=== PATIENT | female | born 1980 | race Caucasian/White ===

== ENCOUNTER 2018-09-16 15:34 | Emergency (ER) | payer OTHER ==
[~2018-09-16] VITALS: Ht 157.5 cm; Wt 67.3 kg
[2018-09-16 15:35] VITALS: BP 136/86
--- NOTE | 2018-09-16 20:02 | REP ---
RIGHT LOWER LEG AP AND LATERAL: There is no evidence of an acute fracture, dislocation or intrinsic bone disease. IMPRESSION: No fracture or dislocation. Electronically Signed by Campos Madera MD 09/17/2018 06:29 P
--- NOTE | 2018-09-16 20:31 | REP ---
RIGHT FOOT, FOUR VIEWS: There is no evidence of an acute fracture, dislocation or intrinsic bone disease. IMPRESSION: No fracture or dislocation. Electronically Signed by Campos Madera MD 09/17/2018 06:39 P
== END 2018-09-16 18:38 | disposition home or self-care (01) ==
LOC: M ED 15:34
DX: M79.671 Pain in right foot (principal); Z87.828 Personal history of other (healed) physical injury and trauma; Z88.8 Allergy status to other drugs, medicaments and biological substances

== ENCOUNTER → 2019-03-12 | Outpatient (REF) | payer OTHER | LOC: M SFHCLERA 14:12 | PROVIDERS: ATTEND Nurse Practitioner Family | DX: J02.9 Acute pharyngitis, unspecified (principal) ==

== ENCOUNTER → 2019-05-11 | Outpatient (REF) | payer OTHER ==
[2019-05-16 08:26] LABS: HPV HYBRID CAPTURE II Negative (Negative)
== END ==
LOC: M SFHCWAGY 14:32
PROVIDERS: ATTEND Nurse Practitioner Women's Health
DX: Z12.4 Encounter for screening for malignant neoplasm of cervix (principal)
CPT/HCPCS: 87624; G0123; G0463

== ENCOUNTER 2019-08-13 18:47 | Emergency (ER) | payer OTHER ==
[~2019-08-13] VITALS: Ht 157.5 cm; Wt 72.0 kg
[2019-08-13] MEDS ORDERED: MULTCAP PO (18:56)
[2019-08-13] MEDS ORDERED: NS 1,000 ML IV ONE (20:00)
[2019-08-13 20:19] LABS: BASO % 0.2 % (0.0-1.0); EOS # 0.1 10^3/uL (0.0-0.5); EOS % 1.1 % (0.0-3.0); HEMATOCRIT 44.6 % (36.0-47.0); HEMOGLOBIN 14.7 g/dl (12.0-15.5); LYMPH # 0.9 10^3/uL (1.5-5.0); LYMPH % 8.1 % (24.0-44.0); MEAN CORPUSCULAR HEMOGLOBIN 30.5 pg (27.0-33.0); MEAN CORPUSCULAR VOLUME 92.5 fl (80.0-96.0); MONO # 0.4 10^3/uL (0.0-0.8); MONO % 3.9 % (0.0-5.0); NEUTROPHILS # 9.4 10^3/uL (1.5-8.5); NEUTROPHILS % 86.1 % (36.0-66.0); PLATELET COUNT, AUTOMATED 257 10^3/uL (150-450); RED BLOOD COUNT 4.82 10^6/uL (4.00-5.40); WHITE BLOOD COUNT 10.9 10^3/uL (4.0-10.0)
[2019-08-13] MEDS ORDERED: ONDANSETRON 4MG/2ML VIAL (J2405) IV ONE (20:30)
[2019-08-13 20:39] LABS: ALBUMIN 4.1 GM/DL (3.2-5.2); ALT/SGPT 17 U/L (12-78); BILIRUBIN,DIRECT 0.1 MG/DL (0.0-0.2); BILIRUBIN,TOTAL 0.4 MG/DL (0.2-1.0); BLOOD UREA NITROGEN 11 MG/DL (7-18); CALCIUM LEVEL 8.5 MG/DL (8.5-10.1); CARBON DIOXIDE LEVEL 28 MEQ/L (21-32); CHLORIDE LEVEL 107 MEQ/L (98-107); GLOMERULAR FILTRATION RATE > 60.0 (>60); GLUCOSE, FASTING 100 MG/DL (70-100); LIPASE 78 U/L (73-393); POTASSIUM SERUM 3.7 MEQ/L (3.5-5.1); SODIUM LEVEL 139 MEQ/L (136-145); TOTAL PROTEIN 7.9 GM/DL (6.4-8.2)
[2019-08-13 20:53] LABS: INFLUENZA A AMPLIFICATION NEGATIVE (NEGATIVE); INFLUENZA B AMPLIFICATION NEGATIVE (NEGATIVE)
[2019-08-13] MEDS ORDERED: ISOVUE-370 76% 100ML VIAL (Q9967) As Ordered ONE (21:14)
[2019-08-13] MEDS ORDERED: KETOROLAC 30 MG/ML VIAL (J1885) IV ONE (21:15)
--- NOTE | 2019-08-13 22:29 | REPVR ---
PROCEDURE INFORMATION: Exam: CT Abdomen And Pelvis With Contrast Exam date and time: 08/13/2019 9:23 PM Age: 38 years old Clinical indication: Abdominal pain; Generalized; Additional info: R/O obstruction TECHNIQUE: Imaging protocol: Computed tomography of the abdomen and pelvis with intravenous contrast. Radiation optimization: All CT scans at this facility use at least one of these dose optimization techniques: automated exposure control; mA and/or kV adjustment per patient size (includes targeted exams where dose is matched to clinical indication); or iterative reconstruction. Contrast material: ISOVUE 370; Contrast volume: 100 ml; Contrast route: IV; COMPARISON: CR Abdomen,Flat Upright,PA CHEST 08/13/2019 8:41 PM FINDINGS: Liver: The liver is normal. Gallbladder and bile ducts: Status post cholecystectomy. Bile ducts are not dilated. Pancreas: The pancreas is normal. Spleen: The spleen is normal. There is a 13 mm accessory splenule. Adrenals: The adrenal glands are normal. Kidneys and ureters: There is a 2 mm nonobstructive lower pole left renal calculus. No obstructive calculus. There is a 6 mm hypodensity in the lower pole of the left kidney. There is a similar sized hypodensity in the upper pole. These are probably cysts but too small for definitive characterization. No hydronephrosis. Stomach and bowel: Loops of jejunum appear mildly thick-walled. No bowel distention to indicate bowel obstruction. Appendix: The appendix is normal. Intraperitoneal space: There is a metallic density in the right mid abdomen. This is a tubal ligation clip which has migrated. The 2nd clip is seen along the inferior edge of the left fallopian tube. No free fluid or fluid collection. No free air. Vasculature: Unremarkable. No abdominal aortic aneurysm. Lymph nodes: Unremarkable. No enlarged lymph nodes. Bladder: The bladder is normal with no evidence of calculi. Reproductive: See Intraperitoneal Space Finding. Bones/joints: Unremarkable. No acute fracture. Soft tissues: There are bilateral breast implants. IMPRESSION: 1. No evidence of bowel obstruction. 2. Mildly thick-walled loops of jejunum may indicate enteritis. 3. A fallopian tube clip has migrated into the right mid abdomen. The clip on the left is at the inferior edge of the fallopian tube and may have also migrated. Electronically signed by: Hank Sahu On 08/13/2019 22:29:09 PM
[2019-08-13] MEDS ORDERED: PROMETHAZINE INJ 25 MG/ML VIAL (J2550) IV ONE (23:15)
[2019-08-13] MEDS ORDERED: MORPHINE 4 MG/ML 1ML VIAL/SYRINGE (J2270) IV ONE (23:45)
[2019-08-14] MEDS ORDERED: ONDANSETRON 4MG/2ML VIAL (J2405) IV ONE (00:15)
[2019-08-14] MEDS ORDERED: DICYCLOMINE 10 MG CAP PO ONE (00:45)
[2019-08-14] MEDS ORDERED: PROCHLORPERAZINE 5 MG TAB (S0183) PO STA ×2 (01:11→02:39)
[2019-08-14] MEDS ORDERED: NS 1,000 ML IV ONE (01:15)
[2019-08-14] MEDS ORDERED: NORCO, ANEXSIA 5/325MG TABLET (HYDROcodone/ACETAMINOPHEN) PO ONE (02:00)
[2019-08-14] MEDS ORDERED: DICY10CA13 PO (02:38)
[2019-08-14] MEDS ORDERED: PROC10TA4 PO (02:38)
[2019-08-14] MEDS ORDERED: NORCO 5/325MG TABLET (BULK FOR ED) PO ONE (02:45)
[2019-08-14 03:06] VITALS: BP 96/55
--- NOTE | 2019-08-14 08:26 | REP ---
Clinical: Epigastric and abdominal pain. Technique: Upright view of the chest with supine and upright views of the abdomen and pelvis. Findings: Frontal upright view of the chest demonstrates no acute cardiopulmonary process or free air below the diaphragm to suspect pneumoperitoneum. Supine and upright views of the abdomen and pelvis demonstrate nonspecific bowel gas pattern without obstruction or perforation. No organomegaly. No abnormal calcifications. Skeletal structures normal for age. Evidence of prior cholecystectomy. Impression: Nonspecific bowel gas pattern. Electronically Signed by Austen Castro MD 08/14/2019 08:17 A
== END 2019-08-14 03:25 | disposition home or self-care (01) ==
LOC: M ED 18:47
DX: K52.9 Noninfective gastroenteritis and colitis, unspecified (principal); K21.9 Gastro-esophageal reflux disease without esophagitis; Z88.8 Allergy status to other drugs, medicaments and biological substances; Z79.899 Other long term (current) drug therapy
CPT/HCPCS: 74021; 74177; 80048; 80076; 81001; 81002; 81025; 83690; 84702; 85025; 87502; 96361; 96374; 96375; 96376; 99284; G0463; J1885; J2270; J2405; Q9967

== ENCOUNTER 2019-08-16 11:42 | Emergency (ER) | payer OTHER ==
[~2019-08-16] VITALS: Ht 157.5 cm; Wt 72.2 kg
[~2019-08-16 11:42] MED LIST: DICY10CA13 PO; MULTCAP PO; PROC10TA4 PO
[2019-08-16 12:23] LABS: BASO % 0.3 % (0.0-1.0); EOS # 0.1 10^3/uL (0.0-0.5); EOS % 1.5 % (0.0-3.0); HEMATOCRIT 42.2 % (36.0-47.0); HEMOGLOBIN 13.6 g/dl (12.0-15.5); LYMPH # 1.3 10^3/uL (1.5-5.0); LYMPH % 17.3 % (24.0-44.0); MEAN CORPUSCULAR HGB CONC 32.2 g/dl (32.0-36.5); MONO # 0.4 10^3/uL (0.0-0.8); MONO % 5.6 % (0.0-5.0); NEUTROPHILS # 5.4 10^3/uL (1.5-8.5); NEUTROPHILS % 74.9 % (36.0-66.0); PLATELET COUNT, AUTOMATED 238 10^3/uL (150-450); RED BLOOD COUNT 4.54 10^6/uL (4.00-5.40); WHITE BLOOD COUNT 7.3 10^3/uL (4.0-10.0)
[2019-08-16 12:45] LABS: ALBUMIN 3.7 GM/DL (3.2-5.2); BILIRUBIN,DIRECT 0.1 MG/DL (0.0-0.2); BILIRUBIN,TOTAL 0.2 MG/DL (0.2-1.0)
[2019-08-16] MEDS ORDERED: ONDA4TAB6 PO (12:58)
[2019-08-16] MEDS ORDERED: PRED10TA2 PO (12:59)
[2019-08-16 13:04] VITALS: BP 115/57
== END 2019-08-16 13:10 | disposition home or self-care (01) ==
LOC: M ED 11:42
DX: A08.4 Viral intestinal infection, unspecified (principal); R11.0 Nausea; Z88.8 Allergy status to other drugs, medicaments and biological substances; Z79.899 Other long term (current) drug therapy

== ENCOUNTER 2019-12-05 12:31 | Emergency (ER) | payer OTHER ==
[~2019-12-05] VITALS: Ht 157.5 cm; Wt 70.5 kg
[~2019-12-05 12:31] MED LIST changes: +ONDA4TAB6 PO; +PRED10TA2 PO
[2019-12-05] MEDS ORDERED: DULC5TAB PO (12:37)
[2019-12-05] MEDS ORDERED: SIME80TA10 PO (12:37)
[2019-12-05 13:05] LABS: BASO % 0.6 % (0.0-1.0); EOS # 0.2 10^3/uL (0.0-0.5); EOS % 2.7 % (0.0-3.0); LYMPH # 1.5 10^3/uL (1.5-5.0); LYMPH % 21.5 % (24.0-44.0); MEAN CORPUSCULAR HEMOGLOBIN 30.1 pg (27.0-33.0); MEAN CORPUSCULAR HGB CONC 33.3 g/dl (32.0-36.5); MEAN CORPUSCULAR VOLUME 90.2 fl (80.0-96.0); MONO # 0.5 10^3/uL (0.0-0.8); MONO % 7.5 % (0.0-5.0); NEUTROPHILS # 4.7 10^3/uL (1.5-8.5); NEUTROPHILS % 67.3 % (36.0-66.0); PLATELET COUNT, AUTOMATED 242 10^3/uL (150-450); RED BLOOD COUNT 3.99 10^6/uL (4.00-5.40)
[2019-12-05 13:33] LABS: ALBUMIN 3.7 GM/DL (3.2-5.2); BILIRUBIN,DIRECT 0.1 MG/DL (0.0-0.2); BILIRUBIN,TOTAL 0.4 MG/DL (0.2-1.0); TOTAL PROTEIN 7.2 GM/DL (6.4-8.2)
[2019-12-05] MEDS ORDERED: ISOVUE-370 76% 100ML VIAL As Ordered ONE (14:17)
[2019-12-05 15:24] VITALS: BP 118/77
--- NOTE | 2019-12-05 16:01 | REP ---
KUB ABDOMEN AND PELVIS: Three KUB films of the abdomen and pelvis performed. There is no evidence of bowel obstruction. No dilated bowel loops are seen. There is mild scattered fecal material in the right transverse and in the right colon. Metallic clips are seen in the right upper quadrant and pelvis. Lumbar spine is slightly curved toward the left. Electronically Signed by Campos Madera MD 12/07/2019 12:49 A
--- NOTE | 2019-12-05 16:19 | REP ---
CT ABDOMEN AND PELVIS WITH IV CONTRAST: TECHNIQUE: Axial contrast-enhanced images from the lung bases to the pubic symphysis using 100 mL Isovue-370 intravenous contrast material with multiplanar reformations. COMPARISON: 08/13/2019 The visualized lung bases are clear. There are scattered tiny subcentimeter cysts in the liver. The patient has had a prior cholecystectomy. There is no biliary dilatation. The spleen is normal in size with no intrinsic abnormality. The adrenal glands are normal. Pancreas demonstrates no abnormality. There is no hydronephrosis bilaterally. No suspicious renal mass is seen. Abdominal aorta is normal in caliber with no aneurysm. I seen no adenopathy or free air. No acute bowel abnormality is seen. The appendix is normal. In the pelvis, there is a collapsed cyst in the left ovary measuring about 2 cm in diameter. There is dense fluid in the cul-de-sac of a moderate degree. The findings are compatible with a ruptured hemorrhagic left ovarian cyst. Right ovary appears unremarkable. Two metallic clips are seen on the left, the more anterior clip just beneath the anterior abdominal wall has migrated from the right adnexa. There appears to be nabothian cyst in the region of the cervix. The urinary bladder is mildly distended and grossly unremarkable. IMPRESSION: Findings compatible with ruptured hemorrhagic left ovarian cyst with moderate dense fluid in the pelvis. Collapsed cyst in the left ovary measures 2 cm in diameter. No other acute findings. Electronically Signed by Campos Madera MD 12/07/2019 12:53 A
== END 2019-12-05 15:40 | disposition home or self-care (01) ==
LOC: M ED 12:31
DX: N83.202 Unspecified ovarian cyst, left side (principal); Z88.8 Allergy status to other drugs, medicaments and biological substances
CPT/HCPCS: 36415; 74019; 74177; 80047; 80076; 81001; 83690; 85025; 99284; Q9967